=== PATIENT | female | born 1965 | race Caucasian/White ===

== ENCOUNTER 2022-11-25 16:17 | Outpatient (CLI) | payer SELFPAY | END 2022-11-25 16:18 | disposition home or self-care (01) | LOC: LKVREF 16:18 | PROVIDERS: PCP Family Medicine; Visit Provider Family Medicine | DX: Z00.00 Encounter for general adult medical examination without abnormal findings (principal) | CPT/HCPCS: 80053 ==

== ENCOUNTER 2024-05-19 09:29 | Outpatient (CLI) | payer BC, SELFPAY ==
[2024-05-19 09:53] LABS: Hemoglobin* 16.7 gm/dL (12.0-16.0); Mean Corpuscular HGB Conc 34 gm/dL (32-36); Mean Corpuscular Hemoglobin 32 pg (26-34); Mean Corpuscular Volume 93 fL (80-100); Platelet Count* 286 K/uL (140-440); Red Blood Count 5.28 m/uL (4.00-5.20); White Blood Count* 8.15 K/uL (4.50-11.00)
[2024-05-19 10:05] LABS: Albumin* 4.5 g/dL (3.3-5.0); Chloride* 102 mmol/L (96-114)
[2024-05-19 10:06] LABS: Potassium* 4.9 mmol/L (3.6-5.1); Sodium* 137 mmol/L (135-149)
[2024-05-19 10:08] LABS: Alanine Aminotransferase* 21 U/L (4-35); Alkaline Phosphatase* 78 U/L (40-150); Anion Gap 5 mEq/L (7-15); Aspartate Amino Transferase* 24 U/L (12-35); Bilirubin Total* 0.8 mg/dL (0.1-1.5); Blood Urea Nitrogen* 20 mg/dL (7-30); Carbon Dioxide* 30 mmol/L (20-32); Cholesterol* 239 mg/dL (90-199); Creatinine* 0.8 mg/dL (0.5-1.5); Estimated Glomerular Filt Rate 84 ml/min; Glucose* 102 mg/dL (60-115); Total Protein* 7.5 g/dL (6.0-8.3); Triglycerides* 140 mg/dL (40-149)
[2024-05-19 10:09] LABS: Calcium* 9.5 mg/dL (8.4-10.6); HDL Cholesterol* 68 mg/dL (>=50); LDL Cholesterol Calculated 143 mg/dL (<100)
[2024-05-19 10:19] LABS: Slide Review Reflex No
== END 2024-05-19 09:30 | disposition home or self-care (01) ==
LOC: NFLDREF 09:42 → LAB 09:47
PROVIDERS: PCP Family Medicine; Visit Provider Family Medicine
DX: J44.9 Chronic obstructive pulmonary disease, unspecified (principal); R53.81 Other malaise; R53.83 Other fatigue; F41.9 Anxiety disorder, unspecified; G89.29 Other chronic pain
CPT/HCPCS: 36415; 80053; 80061; 85027

== ENCOUNTER 2024-06-04 18:41 | Outpatient (CLI) | payer BC, SELFPAY | END 2024-06-04 18:42 | disposition home or self-care (01) | LOC: MRI 18:41 | PROVIDERS: PCP Family Medicine; Visit Provider Family Medicine | DX: M54.2 Cervicalgia (principal); M48.02 Spinal stenosis, cervical region; G89.29 Other chronic pain | CPT/HCPCS: 72141 ==

== ENCOUNTER 2025-02-04 10:00 | Outpatient (CLI) | payer BC, SELFPAY | END 2025-02-04 10:01 | disposition home or self-care (01) | LOC: LKVREF 10:02 | PROVIDERS: PCP Family Medicine; Visit Provider Family Medicine | DX: Z01.818 Encounter for other preprocedural examination (principal); E78.00 Pure hypercholesterolemia, unspecified; J44.9 Chronic obstructive pulmonary disease, unspecified | CPT/HCPCS: 80053; 80061 ==